=== PATIENT | male | born 1985 | race African-American/Black ===

== ENCOUNTER 2020-04-08 13:47 | Emergency (ER) | payer MEDICAID ==
[~2020-04-08] VITALS: Ht 175.3 cm; Wt 86.4 kg
[2020-04-08 13:54] VITALS: BP 134/93; TEMP 98.1
[2020-04-08] MEDS ORDERED: AMOXICILLIN 50500 MG PO (14:15)
[2020-04-08 14:27] VITALS: PULSE 71
== END 2020-04-08 14:27 | disposition home or self-care (01) ==
LOC: COL.ER 13:47
DX: K04.7 Periapical abscess without sinus (principal); Z88.0 Allergy status to penicillin

== ENCOUNTER 2020-08-23 09:40 | Emergency (ER) | payer MEDICAID ==
[~2020-08-23] VITALS: Ht 177.8 cm; Wt 86.4 kg
[~2020-08-23 09:40] MED LIST: AMOXICILLIN 50500 MG PO
[2020-08-23 09:45] VITALS: BP 127/83; TEMP 98.1
[2020-08-23 10:38] VITALS: PULSE 80
== END 2020-08-23 10:39 | disposition home or self-care (01) ==
LOC: COL.ER 09:40
DX: A64 Unspecified sexually transmitted disease (principal); N34.2 Other urethritis; F17.200 Nicotine dependence, unspecified, uncomplicated
CPT/HCPCS: J0696

== ENCOUNTER 2020-12-05 18:54 | Emergency (ER) | payer MEDICAID ==
[~2020-12-05] VITALS: Ht 177.8 cm; Wt 87.7 kg
[2020-12-05 18:58] VITALS: TEMP 97.6
[2020-12-05 21:09] VITALS: BP 132/74; PULSE 75
== END 2020-12-05 21:07 | disposition home or self-care (01) ==
LOC: COL.ER 18:54
DX: R68.84 Jaw pain (principal); S40.211A Abrasion of right shoulder, initial encounter; Z23 Encounter for immunization; X58.XXXA Exposure to other specified factors, initial encounter; Y93.E6 Activity, residential relocation
CPT/HCPCS: J1885

== ENCOUNTER 2024-04-05 10:04 | Emergency (ER) | payer SELFPAY ==
[~2024-04-05] VITALS: Ht 177.8 cm; Wt 92.3 kg
[~2024-04-05 10:04] MED LIST changes: +DOXYCYCLINE 10100 MG PO
[2024-04-05 10:12] VITALS: PULSE 68; TEMP 97.8
[2024-04-05] MEDS ORDERED: FLEXERIL 1010 MG/TAB PO (11:19)
[2024-04-05] MEDS ORDERED: MOTRIN 800800 MG/TAB PO (11:19)
[2024-04-05] MEDS ORDERED: NORCO 325 MG-51 TAB PO (11:19)
[2024-04-05 12:57] VITALS: BP 149/93
== END 2024-04-05 12:57 | disposition home or self-care (01) ==
LOC: COL.ER 10:04
DX: S13.9XXA Sprain of joints and ligaments of unspecified parts of neck, initial encounter (principal); X58.XXXA Exposure to other specified factors, initial encounter